=== PATIENT | male | born 1940 | race Caucasian/White ===

== ENCOUNTER 2018-07-10 22:09 | Emergency (ER) | payer OTHER, BC ==
[2018-07-10 22:17] VITALS: BP 120/49; PULSE 81; TEMP 98.3; BMI 21.4
--- NOTE | 2018-07-10 22:34 | PDOC ---
History of Present Illness - General History Source: Patient, Family Exam Limitations: No Limitations - History of Present Illness Initial Comments: 07/10/18 22:46 The patient is a 78 year old male presenting with family, with a significant past medical history of diabetes (on Metformin for 30 years), who presents to the ED complaining of wound on his left lower extremity 2 weeks ago. He reports that he was bending over to rock picker something when he scraped his left leg with a rock. He notes that he used disinfecting powder which helped stop the bleeding. On presentation the wound is dry and not bleeding. He reports minimal to no pain from the wound area. The patient denies chest pain, shortness of breath, headache and dizziness. Denies fever, chills, nausea, vomiting, diarrhea or constipation. Denies dysuria , frequency, urgency and hematuria. Allergies: None Past surgical history: None reported Social History: No alcohol, tobacco or drug use reported <Dallas Craft - Last Filed: 07/10/18 22:59> <Sherrell Mccullough - Last Filed: 07/11/18 02:32> - General Chief Complaint: Wound Stated Complaint: WOUND TO LEFT LOWER LEG X 2 WEEKS Time Seen by Provider: 07/10/18 22:30 Past History <Dallas Craft - Last Filed: 07/10/18 22:59> - Past Medical History COPD: No Diabetes: Yes - Suicide/Smoking/Psychosocial Hx Smoking History: Former smoker Have you smoked in the past 12 months: No If you are a former smoker, when did you quit?: 50 YRS Information on smoking cessation initiated: No Hx Alcohol Use: No Drug/Substance Use Hx: No Substance Use Type: None <Sherrell Mccullough - Last Filed: 07/11/18 02:32> - Past Medical History Allergies/Adverse Reactions: Allergies Allergy/AdvReac Type Severity Reaction Status Date / Time No Known Allergies Allergy Verified 07/10/18 22:11 Home Medications: Ambulatory Orders Metformin HCl [Glucophage] 1,000 mg PO BID 07/10/18 Review of Systems - Review of Systems Able to Perform ROS?: Yes Comments:: 07/10/18 22:46 GENERAL/CONSTITUTIONAL: No fever or chills. No weakness. HEAD, EYES, EARS, NOSE AND THROAT: No change in vision. No ear pain or discharge. No sore throat. GASTROINTESTINAL: No nausea, vomiting, diarrhea or constipation. GENITOURINARY: No dysuria, frequency, or change in urination. CARDIOVASCULAR: No chest pain or shortness of breath. RESPIRATORY: No cough, wheezing, or hemoptysis. MUSCULOSKELETAL: No joint or muscle swelling or pain. No neck or back pain. SKIN: (+) Diabetic Wound Left lower extremity. NEUROLOGIC: No headache, vertigo, loss of consciousness, or change in strength/ sensation. ENDOCRINE: No increased thirst. No abnormal weight change. HEMATOLOGIC/LYMPHATIC: No anemia, easy bleeding, or history of blood clots. ALLERGIC/IMMUNOLOGIC: No hives or skin allergy. <Dallas Craft - Last Filed: 07/10/18 22:59> *Physical Exam - Vital Signs Last Vital Signs Temp Pulse Resp BP Pulse Ox 98.3 F 81 16 120/49 L 100 07/10/18 22:13 07/10/18 22:13 07/10/18 22:13 07/10/18 22:13 07/10/18 22:13 - Physical Exam Comments: 07/10/18 22:46 Constitutional: Awake, alert, oriented. No acute distress. Head: Normocephalic. Atraumatic Eyes: PERRL. EOMI. Conjunctivae are not pale. ENT: Mucous membranes are moist and intact. Posterior pharynx without exudates or erythema. Uvula midline. Neck: Supple. Full ROM. No lymphadenopathy. Cardiovascular: Regular rate. Regular rhythm. S1, S2 regular. Distal pulses are 2+ and symmetric. Pulmonary/Chest: No evidence of respiratory distress. Clear to auscultation bilaterally No wheezing, rales or rhonchi. Abdominal: Soft and non-distended. There is no tenderness. No rebound, guarding or rigidity. No organomegaly. No palpable masses. Good bowel sounds. Back: No CVA tenderness. Musculoskeletal: No edema. No cyanosis. No clubbing. Full range of motion in all extremities. Nocalf tenderness. Radial/pedal pulses are intact and 2+ bilaterally Skin: (+) 5 cm linear wound scaly surface on left lower extremity, midline lower anterior tibial surface. 1 cm faintly erythematous border. No edema, tenderness, fluctuance or discharge from the wound. Neurological: Alert and oriented to person, place, and time. Cranial nerves II -XII are grossly intact. Normal speech. Strength is grossly symmetric. No sensory deficits. Psychiatric: Good eye contact. Normal interaction, affect and behavior. <Dallas Craft - Last Filed: 07/10/18 22:59> - Vital Signs Last Vital Signs Temp Pulse Resp BP Pulse Ox 98.3 F 81 16 120/49 L 100 07/10/18 22:13 07/10/18 22:13 07/10/18 22:13 07/10/18 22:13 07/10/18 22:13 <Sherrell Mccullough - Last Filed: 07/11/18 02:32> Moderate Sedation - Procedure Monitoring Vital Signs: Procedure Monitoring Vital Signs Temperature 98.3 F 07/10/18 22:13 Pulse Rate 81 07/10/18 22:13 Respiratory Rate 16 07/10/18 22:13 Blood Pressure 120/49 L 07/10/18 22:13 O2 Sat by Pulse Oximetry (%) 100 07/10/18 22:13 <Dallas Craft - Last Filed: 07/10/18 22:59> - Procedure Monitoring Vital Signs: Procedure Monitoring Vital Signs Temperature 98.3 F 07/10/18 22:13 Pulse Rate 81 07/10/18 22:13 Respiratory Rate 16 07/10/18 22:13 Blood Pressure 120/49 L 07/10/18 22:13 O2 Sat by Pulse Oximetry (%) 100 07/10/18 22:13 <Sherrell Mccullough - Last Filed: 07/11/18 02:32> Medical Decision Making - Medical Decision Making Documentation has been prepared under my direction and personally reviewed by me in its entirety. I attest that this documented accurately reflects all work, treatment, procedures and medical decision making performed by me. This 78-year-old man with a history of DM is accompanied by his son-in-law for evaluation of wound of his left lower leg. Approximately 3 weeks ago, patient scraped the anterior tibial surface of his left lower leg against a rock when he was picking something up outside. Patient states that he cleansed the area and placed a disinfectant powder that he bought in a drugstore on the surface of the wound. States that initial erythema decreased significantly after the powder was applied to the wound. He states that improvement has been steady since then. There has been no significant swelling or drainage of purulent material. Exam as noted with scaling along the surface of the wound. There is a very faint erythematous border around the wound proper but no edema/fluctuance/ tenderness noted . There is no purulent drainage noted. Wound appears to be healing slowly without evidence of significant infection at this time. Patient has an front desk officer but no other general physician for follow-up. It was noted to the patient that wound care clinics are experts in helping colonic wounds heal; [facility] has a wound clinic and referral information will be provided for the patient for follow-up there. Patient seemed resistant to follow-up with wound care clinic although his son was encouraging him strongly to do this. He should return to the ER if there is significant swelling/increasing pain or drainage from the wound <Sherrell Mccullough - Last Filed: 07/11/18 02:32> *DC/Admit/Observation/Transfer - Attestations Scribe Attestion: 07/10/18 22:45 Documentation prepared by Dallas Craft, acting as medical reimbursement specialist for Sherrell Mccullough MD <Dallas Craft - Last Filed: 07/10/18 22:59> <Sherrell Mccullough - Last Filed: 07/11/18 02:32> Diagnosis at time of Disposition: Chronic wound of extremity - Discharge Dispostion Disposition: HOME Condition at time of disposition: Stable - Referrals Referrals: Jakob Samano MD [Staff Physician] - - Patient Instructions Printed Discharge Instructions: Debridement of a Wound, Infection, or Burn Additional Instructions: Follow-up at wound care clinic at [facility]() within the next 10 days Return to ER immediately or see your doctor if area becomes swollen/red/painful or you develop discharge from the wound
== END 2018-07-10 23:02 | disposition home or self-care (01) ==
LOC: FER 22:09
DX: L08.9 Local infection of the skin and subcutaneous tissue, unspecified (principal); Z87.891 Personal history of nicotine dependence; E11.9 Type 2 diabetes mellitus without complications; Z79.84 Long term (current) use of oral hypoglycemic drugs
CPT/HCPCS: 99281-25

== ENCOUNTER 2019-05-18 17:30 | Inpatient (IN) | payer OTHER, BC ==
--- NOTE | 2019-05-18 18:01 | PDOC ---
History of Present Illness - General Chief Complaint: Abscess Boil Stated Complaint: ABSCESS Time Seen by Provider: 05/18/19 17:41 - History of Present Illness Initial Comments: 05/18/19 18:44 79yo male presents with his daughter for evaluation of multiple skin abscesses. Pt with hx of htn and dm - last a1c was 9 down from 12 on trulicity with multiple skin abscessess and fluid collections. The first is on the patients R posterior scalp. Pt states it has been present for about a week. States it will intermittently drain purulent fluid. Pt also c/o L scrotal abscess x 6m that he will push on and express thick white fluid from and then it will refill. No pain to the scrotal sack. Pt also c/o a L buttock abscess in the fold just proximal to the rectal region. 7x4cm abscess without drainage but with surroudning erythema. Pt denies f/c. NO abd pain. No rectal bleeding. No n/v/d. No cp/sob. No other complaints. Past History - Past Medical History Allergies/Adverse Reactions: Allergies Allergy/AdvReac Type Severity Reaction Status Date / Time No Known Allergies Allergy Verified 05/18/19 17:34 Home Medications: Ambulatory Orders Metformin HCl [Glucophage] 1,000 mg PO BID 07/10/18 Cholecalciferol (Vitamin D3) [Vitamin D3 -] 1,000 unit PO DAILY 05/18/19 Cyanocobalamin [Vitamin B12 -] 2,000 mcg PO DAILY 05/18/19 Dulaglutide [Trulicity] 0.5 mg SQ WEEKLY 05/18/19 Lisinopril [Zestril] 2.5 mg PO DAILY 05/18/19 Sitagliptin Phosphate [Januvia] 50 mg PO DAILY 05/18/19 Tamsulosin HCl [Flomax] 0.4 mg PO HS 05/18/19 COPD: No Diabetes: Yes HTN: Yes - Psycho Social/Smoking Cessation Hx Smoking History: Former smoker Have you smoked in the past 12 months: No If you are a former smoker, when did you quit?: 50 YRS Information on smoking cessation initiated: No Hx Alcohol Use: No Drug/Substance Use Hx: No Substance Use Type: None Review of Systems - Review of Systems Able to Perform ROS?: Yes Is the patient limited Syrian proficient: No Constitutional: No: Chills, Fever HEENTM: No: Eye Pain, Nose Pain, Throat Pain Respiratory: No: Cough, Shortness of Breath Cardiac (ROS): No: Chest Pain ABD/GI: Yes: Other (R buttock pain). No: Diarrhea, Nausea, Vomiting, Abdominal cramping : Yes: Testicular Mass (L scrotal abscesss vs cyst without surrounding erythema or drainage) Musculoskeletal: No: Back Pain Integumentary: Yes: Lesions, Other (multiple abscesses present) Neurological: No: Headache All Other Systems: Reviewed and Negative *Physical Exam - Vital Signs Last Vital Signs Temp Pulse Resp BP Pulse Ox 97.5 F L 90 18 125/62 98 05/18/19 17:30 05/18/19 17:30 05/18/19 17:30 05/18/19 17:30 05/18/19 17:30 - Physical Exam General Appearance: Yes: Nourished, Appropriately Dressed. No: Apparent Distress HEENT: positive: EOMI, BRAY[place], Normal Voice Neck: positive: Supple Respiratory/Chest: positive: Lungs Clear, Normal Breath Sounds. negative: Respiratory Distress Cardiovascular: positive: Regular Rhythm, Regular Rate, S1, S2 Gastrointestinal/Abdominal: positive: Normal Bowel Sounds, Flat, Soft, Other (L buttock with 7x4cm indurated region with fluctuance just proximal to the rectum , rectal exam without defect felt, no masses, light brown stool, no hemorroids) . negative: Guarding, Rebound, Tenderness Male Genitalia: positive: other (L scrotal region with anterior cyst with white fluid - mobile cyst, no ttp, no drainage, no surrounding erythema) Rectal Exam: positive: normal rectal tone, other (unable to palpate a defect in the rectum, but feel induration at the 6p location) Musculoskeletal: positive: Normal Inspection Extremity: positive: Normal Capillary Refill, Normal Inspection. negative: Swelling Integumentary: positive: Other (abscess with induration and purulent drainage- actively draining to the R posterior scalp just behind the ear, no surrounding erythema, other abscess perirectal and cyst L scrotal region) ED Treatment Course - LABORATORY CBC & Chemistry Diagram: 05/18/19 18:30 05/18/19 18:30 Medical Decision Making - Medical Decision Making 05/18/19 19:00 a/p: 79yo male with L scrotal poss sebateous cyst, L buttock/perirectal region, and R posterior scalp abscess -pt is diabetic and poorly controlled -will send labs, cultures -wound culture taken from purulent drainage from the R posterior scalp region -will start broad spectrum abx -will send for scrotal ultrasound and ct abd/pelvis -pt will need urologic and surgical eval for multiple abscesses/cysts present 05/18/19 19:02 pt has been signed out the oncoming ED physician pending labs, imaging Discharge - Discharge Information Problems reviewed: Yes Clinical Impression/Diagnosis: Scalp abscess, Left buttock abscess, Scrotal sebaceous cyst Condition: Guarded - Follow up/Referral Referrals: Antelmo Prater MD [Primary Care Provider] - - Patient Discharge Instructions - Post Discharge Activity
[2019-05-18] MEDS ORDERED: PIPERACILLIN/TAZOB 3.375 GM 3.375 GM in DEXTROSE 5%-WATER - 50 ML IVPB ONE (18:43)
[2019-05-18] MEDS ORDERED: VANCOMYCIN 1 GM in D5W (PRE-DOCKED) 1,000 MG/250 ML IVPB ONE (18:43)
[2019-05-18] MEDS ORDERED: VANCOMYCIN 1,000 MG VIAL (RESTRICTED TO ID ONLY) ONE (18:50)
[2019-05-18] MEDS ORDERED: PIPERACILLIN/TAZOBACTAM 3.375 GM VIAL IVPB ONE (18:50)
[2019-05-18 18:52] LABS: BASO % 0.1 % (0-2.0); EOS % 2.2 % (0-4.5); HEMATOCRIT 30.8 % (35.4-49); HEMOGLOBIN 10.6 GM/dl (11.7-16.9); LYMPH % 10.3 % (8-40); MCH 30.9 pg (25.7-33.7); MCHC 34.3 g/dl (32.0-35.9); MEAN CELL VOLUME 90.1 fl (80-96); MEAN PLT VOLUME 8.3 fl (7.5-11.1); MONO % 4.9 % (3.8-10.2); NEUT % 82.5 % (42.8-82.8); PLATELET COUNT 286 K/MM3 (134-434); RBC 3.42 M/mm3 (4.00-5.60); WHITE BLOOD COUNT 12.9 K/mm3 (4.0-10.8)
[2019-05-18 18:54] LABS: INR 1.09 (0.82-1.09); PROTHROMBIN TIME (PATIENT) 12.2 SEC (10.2-13.0)
[2019-05-18 18:59] LABS: ALBUMIN 3.5 g/dl (3.4-5.0); BILIRUBIN,TOTAL 0.4 mg/dl (0.2-1); CALCIUM 9.3 mg/dl (8.5-10); CREATININE 1.8 mg/dl (0.55-1.3); TOT PROT 6.6 g/dl (6.4-8.2)
[2019-05-18 19:34] LABS: POTASSIUM 5.1 mmol/L (3.5-5.1)
--- NOTE | 2019-05-18 20:45 | PDOC ---
*Physical Exam - Vital Signs Last Vital Signs Temp Pulse Resp BP Pulse Ox 97.5 F L 90 18 125/62 98 05/18/19 17:30 05/18/19 17:30 05/18/19 17:30 05/18/19 17:30 05/18/19 17:30 ED Treatment Course - LABORATORY CBC & Chemistry Diagram: 05/18/19 18:30 05/18/19 18:30 - ADDITIONAL ORDERS Additional order review: Laboratory Results 05/18/19 05/18/19 05/18/19 18:30 18:30 18:30 PT with INR 12.2 INR 1.09 PTT (Actin FS) 35.4 Sodium 136 Potassium 5.1 Chloride 102 Carbon Dioxide 26 Anion Gap 8 BUN 36.0 H Creatinine 1.8 H Est GFR (CKD-EPI)AfAm 40.02 Est GFR (CKD-EPI)NonAf 34.53 Random Glucose 327 H Calcium 9.3 Total Bilirubin 0.4 AST 13 L ALT 12 L Alkaline Phosphatase 62 Total Protein 6.6 Albumin 3.5 05/18/19 18:30 RBC 3.42 L MCV 90.1 MCHC 34.3 RDW 12.0 MPV 8.3 Neutrophils % 82.5 Lymphocytes % 10.3 Monocytes % 4.9 Eosinophils % 2.2 Basophils % 0.1 - RADIOLOGY Radiology Studies Ordered: Category Date Time Status ABDOMEN & PELVIS CT W/O CONTR [CT] Stat CT Scan 05/18/19 20:10 Taken - Medications Given in the ED: ED Medications Discontinued Medications Generic Name Dose Route Start Last Admin Trade Name Freq PRN Reason Stop Dose Admin Piperacillin Sod/Tazobactam 50 mls @ 100 mls/hr 05/18/19 18:43 05/18/19 19:00 Sod 3.375 gm/ Dextrose IVPB 05/18/19 19:12 100 mls/hr ONCE ONE Administration Protocol Vancomycin HCl 1,000 mg 05/18/19 18:43 05/18/19 19:59 Vancomycin (Pre-Docked) IVPB 05/18/19 18:44 1,000 mg ONCE ONE Administration Protocol Medical Decision Making - Medical Decision Making 05/18/19 21:18 Glucose is 327. Anion gap is 6. No sign of acidosis. Multiple abscesses. However, they appear to be superficial. No deep involvement of the buttock abscess or abscess of the scrotum. Admitted to hospitalist service for better control of diabetes and surgical consultation, general surgery and urology, for treatment of abscesses. Patient remains clinically and hemodynamically stable, fully alert, cheerful, and cooperative, in no pain or other acute distress. Discharge - Discharge Information Problems reviewed: Yes Clinical Impression/Diagnosis: Scalp abscess, Left buttock abscess, Scrotal sebaceous cyst Condition: Guarded - Admission Yes - Follow up/Referral Referrals: Antelmo Prater MD [Primary Care Provider] - - Patient Discharge Instructions - Post Discharge Activity
[2019-05-18 22:27] VITALS: BMI 19.1
--- NOTE | 2019-05-18 23:21 | HP ---
Admitting History and Physical - Primary Care Physician PCP: Dr. Schultz - Admission Chief Complaint: Abscess History of Present Illness: 79yo male with PMH of HTN, DM presents with his daughter for evaluation of multiple skin abscesses. Multiple skin abscess noted with fluid collections. First noted with right posterior scalp, for about a week with intermittently draining purulent fluid. Second with L scrotal abscess x 6m no pain to the scrotal sack. Third to left buttock abscess rectal region 7x4cm abscess surrounding erythema noted. No rectal bleeding. No n/v/d. No cp/sob. History Source: Patient, Family Member, Medical Record Limitations to Obtaining History: No Limitations - Past Medical History Cardiovascular: Yes: HTN Renal/: Yes: BPH Endocrine: Yes: Diabetes Mellitus - Past Surgical History Past Surgical History: Yes: None - Advance Directives Advance Directives: Yes: Health Care Proxy - Smoking History Smoking history: Former smoker Have you smoked in the past 12 months: No If you are a former smoker, when did you quit?: 50 YRS - Alcohol/Substance Use Hx Alcohol Use: No - Social History History of Recent Travel: No Home Medications - Allergies Allergies/Adverse Reactions: Allergies Allergy/AdvReac Type Severity Reaction Status Date / Time No Known Allergies Allergy Verified 05/18/19 17:34 - Home Medications Home Medications: Ambulatory Orders Metformin HCl [Glucophage] 1,000 mg PO BID 07/10/18 Cholecalciferol (Vitamin D3) [Vitamin D3 -] 1,000 unit PO DAILY 05/18/19 Cyanocobalamin [Vitamin B12 -] 2,000 mcg PO DAILY 05/18/19 Dulaglutide [Trulicity] 0.5 mg SQ WEEKLY 05/18/19 Lisinopril [Zestril] 2.5 mg PO DAILY 05/18/19 Sitagliptin Phosphate [Januvia] 50 mg PO DAILY 05/18/19 Tamsulosin HCl [Flomax] 0.4 mg PO HS 05/18/19 Family Medical History Family History: Denies Review of Systems - Review of Systems Constitutional: reports: No Symptoms Eyes: reports: No Symptoms HENT: reports: No Symptoms, Ocular Prosthesis Cardiovascular: reports: No Symptoms Respiratory: reports: No Symptoms Gastrointestinal: reports: No Symptoms Genitourinary: reports: No Symptoms Musculoskeletal: reports: No Symptoms Integumentary: reports: Other (multiple abscess) Neurological: reports: No Symptoms Endocrine: reports: No Symptoms Hematology/Lymphatic: reports: No Symptoms Psychiatric: reports: No Symptoms Physical Examination Vital Signs: Vital Signs Temperature 98.6 F 05/18/19 22:37 Pulse Rate 83 05/18/19 22:37 Respiratory Rate 16 05/18/19 22:37 Blood Pressure 139/58 L 05/18/19 22:37 O2 Sat by Pulse Oximetry (%) 97 05/18/19 22:37 Constitutional: Yes: No Distress, Calm Eyes: Yes: Conjunctiva Clear, EOM Intact HENT: Yes: Atraumatic, Normocephalic Neck: Yes: Supple, Trachea Midline Cardiovascular: Yes: Regular Rate and Rhythm Respiratory: Yes: Regular, CTA Bilaterally Gastrointestinal: Yes: Normal Bowel Sounds, Soft, Other (L buttock with 7x4cm indurated region with fluctuance just proximal to the rectum) Renal/: Yes: Other ( L scrotal region with anterior cyst with white fluid - mobile cyst) Musculoskeletal: Yes: WNL Extremities: Yes: WNL Integumentary: Yes: Other (R posterior scalp abscess) Labs: CBC, BMP 05/18/19 18:30 05/18/19 18:30 Imaging - Results Cat Scan: Report Reviewed (Ct Abd/pelvis: collection at gluteal cleft 2.7 x 2.5 axially and 2.8 cm in craniocaludal dimension compatibile with an abscess, ? infected pilobnidal cyst) Ultrasound: Report Reviewed (left scrotal subcutaneous mass in left hemiscrotum measuring 1.2 x 0.7 x1.7 composed of fluid, soft tissue density) Problem List - Problems (1) Scrotal sebaceous cyst Code(s): L72.3 - SEBACEOUS CYST (2) Scalp abscess Code(s): L02.811 - CUTANEOUS ABSCESS OF HEAD [ANY PART, EXCEPT FACE] (3) Left buttock abscess Code(s): L02.31 - CUTANEOUS ABSCESS OF BUTTOCK (4) SHANTI (acute kidney injury) Code(s): N17.9 - ACUTE KIDNEY FAILURE, UNSPECIFIED (5) Diabetes Code(s): E11.9 - TYPE 2 DIABETES MELLITUS WITHOUT COMPLICATIONS (6) BPH (benign prostatic hyperplasia) Code(s): N40.0 - BENIGN PROSTATIC HYPERPLASIA WITHOUT LOWER URINRY TRACT SYMP (7) HTN (hypertension) Code(s): I10 - ESSENTIAL (PRIMARY) HYPERTENSION Assessment/Plan 79yo male with PMH of HTN, DM and BPH arrived to ED for multiple abscess First noted with right posterior scalp, for about a week with intermittently draining purulent fluid. Second with L scrotal abscess x 6m no pain to the scrotal sack. Third to left buttock abscess rectal region 7x4cm abscess surrounding erythema noted. # Multiple abscess left scrotal US: subcutaneous mass in left hemiscrotum measuring 1.2 x 0.7 x1.7 composed of fluid, soft tissue density Ct Abd/pelvis: collection at gluteal cleft 2.7 x 2.5 axially and 2.8 cm in craniocaludal dimension compatibile with an abscess, ? infected pilobnidal cyst wbc: 12.9 In ED: given vanco and zosyn x1 -follow up blood, wound culture -Tylenol q 4 hour for pain -continue with zosyn 3.375mg q8 hours -follow up cbc, cmp in AM -follow up ID -follow up surgical eval #SHANTI bun/cr: 36/1.8 - start IVF NS 75 ml/hr - monitor renal function #DM - follow up hgA1c - monitor FSBS TID AC, coverage with novlog sliding scale - Sitagliptin Phosphate 50 mg PO DAILY # HTN - Lisinopril 2.5 mg PO DAILY #BPH - Tamsulosin HCl 0.4 mg PO HS Diet: CASA/NCS DVT PPX: SCD/ Heparin SQ Visit type - Emergency Visit Emergency Visit: Yes ED Registration Date: 05/18/19 Care time: The patient presented to the Emergency Department on the above date and was hospitalized for further evaluation of their emergent condition. - New Patient This patient is new to me today: Yes Date on this admission: 05/19/19 - Critical Care Critical Care patient: No
[2019-05-18] MEDS ORDERED: ACETAMINOPHEN 325 MG TABLET (FP) PO PRN (23:54)
[2019-05-19] MEDS: SODIUM CHLORIDE 1,000 ML IV SCH
[2019-05-19] MEDS ORDERED: PIPERACILLIN/TAZOB 3.375 GM 3.375 GM in DEXTROSE 5%-WATER - 50 ML IVPB SCH (02:00)
[2019-05-19] MEDS: PIPERACILLIN/TAZOB 3.375 GM 3.375 GM in DEXTROSE 5%-WATER - 50 ML IVPB SCH ×3 (02:59→17:08)
[2019-05-19] MEDS: INSULIN (NOVOLOG) ASPART 100 UNITS/ML 10ML VIAL SQ SCH ×3 (06:29→16:23)
--- NOTE | 2019-05-19 08:26 | PN ---
Physical Exam: SUBJECTIVE: Patient seen and examined, reports feeling better,pain controlled. Denies NIEVES, dizziness, cp, sob, palpitations, abdominal pain,N/V/D or urinary symptoms. OBJECTIVE: Vital Signs Period Temp Pulse Resp BP Sys/Lane Pulse Ox Last 24 Hr 97.5 F-98.6 F 77-90 16-18 108-139/52-62 96-98 GENERAL: The patient is awake, alert, and fully oriented, in no acute distress. HEAD: Normal with no signs of trauma-R posterior scalp abscess- draining EYES: PERRL, extraocular movements intact, sclera anicteric, conjunctiva clear. No ptosis. ENT: Ears normal, nares patent, oropharynx clear without exudates, moist mucous membranes. NECK: Trachea midline, full range of motion, supple. LUNGS: Breath sounds equal, clear to auscultation bilaterally, no wheezes, no crackles, no accessory muscle use. HEART: Regular rate and rhythm, S1, S2 without murmur, rub or gallop. ABDOMEN: Soft, nontender, nondistended, normoactive bowel sounds, no guarding, no rebound, no hepatosplenomegaly, no masses. EXTREMITIES: 2+ pulses, warm, well-perfused, no edema. NEUROLOGICAL: Cranial nerves II through XII grossly intact. Normal speech, gait not observed. PSYCH: Normal mood, normal affect. SKIN: Warm, dry, normal turgor, Left buttock abscess, Scrotal cyst Laboratory Results - last 24 hr 05/18/19 05/18/19 05/18/19 18:30 18:30 18:30 WBC 12.9 H RBC 3.42 L Hgb 10.6 L Hct 30.8 L MCV 90.1 MCH 30.9 MCHC 34.3 RDW 12.0 Plt Count 286 MPV 8.3 Absolute Neuts (auto) 10.7 Neutrophils % 82.5 Lymphocytes % 10.3 Monocytes % 4.9 Eosinophils % 2.2 Basophils % 0.1 PT with INR INR PTT (Actin FS) 35.4 Sodium 136 Potassium 5.1 Chloride 102 Carbon Dioxide 26 Anion Gap 8 BUN 36.0 H Creatinine 1.8 H Est GFR (CKD-EPI)AfAm 40.02 Est GFR (CKD-EPI)NonAf 34.53 POC Glucometer Random Glucose 327 H Calcium 9.3 Total Bilirubin 0.4 AST 13 L ALT 12 L Alkaline Phosphatase 62 Total Protein 6.6 Albumin 3.5 05/18/19 05/19/19 18:30 05:28 WBC RBC Hgb Hct MCV MCH MCHC RDW Plt Count MPV Absolute Neuts (auto) Neutrophils % Lymphocytes % Monocytes % Eosinophils % Basophils % PT with INR 12.2 INR 1.09 PTT (Actin FS) Sodium Potassium Chloride Carbon Dioxide Anion Gap BUN Creatinine Est GFR (CKD-EPI)AfAm Est GFR (CKD-EPI)NonAf POC Glucometer 149 Random Glucose Calcium Total Bilirubin AST ALT Alkaline Phosphatase Total Protein Albumin Active Medications Generic Name Dose Route Start Last Admin Trade Name Freq PRN Reason Stop Dose Admin Acetaminophen 650 mg 05/18/19 23:54 Tylenol - PO Q4H PRN PAIN LEVEL 1-5 Heparin Sodium (Porcine) 5,000 unit 05/19/19 10:00 Heparin - SQ BID ADRIÁN Sodium Chloride 1,000 mls @ 75 mls/hr 05/18/19 23:45 05/19/19 00:00 Normal Saline - IV 75 mls/hr ASDIR ADRIÁN Administration Piperacillin Sod/Tazobactam 50 mls @ 100 mls/hr 05/19/19 02:00 Sod 3.375 gm/ Dextrose IVPB Q8H-IV ADRIÁN Protocol Piperacillin Sod/Tazobactam 50 mls @ 100 mls/hr 05/19/19 02:00 05/19/19 02:59 Sod 3.375 gm/ Dextrose IVPB 05/19/19 18:29 100 mls/hr Q8H-IV ADRIÁN Administration Insulin Aspart 1 units 05/19/19 07:00 05/19/19 06:29 Novolog Vial SQ Not Given TIDAC [facility] Protocol Lisinopril 2.5 mg 05/19/19 10:00 Prinivil PO DAILY ADRIÁN Sitagliptin Phosphate 50 mg 05/19/19 10:00 Januvia - PO DAILY ADRIÁN Tamsulosin HCl 0.4 mg 05/19/19 22:00 Flomax - PO HS ADRIÁN Cat Scan: Report Reviewed (Ct Abd/pelvis: collection at gluteal cleft 2.7 x 2.5 axially and 2.8 cm in craniocaludal dimension compatible with an abscess, ? infected pilobnidal cyst) Ultrasound: Report Reviewed (left scrotal subcutaneous mass in left hemiscrotum measuring 1.2 x 0.7 x1.7 composed of fluid, soft tissue density) ASSESSMENT/PLAN: 79yo male with PMH of HTN, DM and BPH arrived to ED for multiple abscess PMD Antelmo Castellon # Multiple abscess - Imaging consistent with abscess/cyst -wbc: 12.9 >13 - afebrile -s/p vanco and zosyn x1 - will cont on Zosyn and Vanco -will f/u on culture reports -follow up ID - sx Dr. Braxton following,rec ID tomorrow - NPO after MN - woll hold AM Heparin dose #SHANTI -unknown baseline -bun/cr: 36/1.8 >29/1.5 -on IVF NS 75 ml/hr - monitor renal function #DM - HgA1c 9.4 - monitor FSBS TID AC, coverage with novlog sliding scale - will cont on Januvia, hold off Metformin - consistent carb diet # HTN - BP on the low side -will hold off Lisinopril in view of SHANTI - will monitor BP closely #BPH - Tamsulosin HCl 0.4 mg PO HS Diet: Diabetic/ CASA/NCS DVT PPX: SCD/ Heparin SQ Visit type - Emergency Visit Emergency Visit: Yes ED Registration Date: 05/18/19 Care time: The patient presented to the Emergency Department on the above date and was hospitalized for further evaluation of their emergent condition. - New Patient This patient is new to me today: Yes Date on this admission: 05/19/19 - Critical Care Critical Care patient: No
[2019-05-19 08:33] LABS: HEMATOCRIT 30.2 % (35.4-49); HEMOGLOBIN 10.4 GM/dl (11.7-16.9); MCH 30.5 pg (25.7-33.7); MCHC 34.3 g/dl (32.0-35.9); MEAN CELL VOLUME 88.9 fl (80-96); MEAN PLT VOLUME 8.1 fl (7.5-11.1); PLATELET COUNT 286 K/MM3 (134-434); RDW 11.9 % (11.9-15.9)
[2019-05-19 08:45] LABS: ALBUMIN 3.3 g/dl (3.4-5.0); BILIRUBIN,TOTAL 0.5 mg/dl (0.2-1); CALCIUM 9.1 mg/dl (8.5-10); CREATININE 1.5 mg/dl (0.55-1.3); POTASSIUM 4.6 mmol/L (3.5-5.1); TOT PROT 6.2 g/dl (6.4-8.2)
[2019-05-19] MEDS ORDERED: DEXTROSE 5%-WATER - 50 ML IVPB ONE ×2 (09:13→16:15)
[2019-05-19] MEDS ORDERED: PIPERACILLIN/TAZOBACTAM 3.375 GM VIAL IVPB ONE ×2 (09:13→16:15)
[2019-05-19] MEDS ORDERED: PATIENT'S OWN MEDICATION (NON-FORMULARY) (Lisinopril [Zestril] 2.5 MG) PO SCH (10:00)
[2019-05-19] MEDS ORDERED: LISINOPRIL 5 MG TABLET (FP) PO SCH (10:00)
[2019-05-19] MEDS ORDERED: sitaGLIPtin PHOSPHATE 50 MG TABLET PO SCH (10:00)
--- NOTE | 2019-05-19 10:12 | CON.ID ---
Consult - History of Present Illness History of Present Illness: 79 y.o. male with uncontrolled DM and HTN presenting with collections with purulent drainage on Lt scalp, Lt gluteal cleft, and Lt testical for the past approx 1 wk as per pt. Lt gluteal cleft abscess Lt scrotal abscess Lt scalp abscess DM HTN BPH -- continue Vancomycin/Zosyn empirically for now -- f/u wound/blood cultures - akjust antibiotics if indicated -- wbc mildly elevated, monitor cbc -- monitor renal function (creatinine decreasing) -- Vancomycin trough prior to 4th dose -- Surgical evaluation -- continue wound care -- needs control of DM Pt very resistant to receiving insulin for coverage Explained to him importance of glycemic control, case d/w daughter over the phone Will follow Thank you - History Source History Provided By: Patient, Family Member Limitations to Obtaining History: No Limitations - Past Medical History Cardio/Vascular: Yes: HTN Renal/: Yes: BPH Endocrine: Yes: Diabetes Mellitus - Past Surgical History Past Surgical History: Yes: None - Alcohol/Substance Use Hx Alcohol Use: No - Smoking History Smoking history: Former smoker Have you smoked in the past 12 months: No If you are a former smoker, when did you quit?: 50 YRS - Social History History of Recent Travel: No Home Medications - Allergies Allergies/Adverse Reactions: Allergies Allergy/AdvReac Type Severity Reaction Status Date / Time No Known Allergies Allergy Verified 05/18/19 17:34 - Home Medications Home Medications: Ambulatory Orders Metformin HCl [Glucophage] 1,000 mg PO BID 07/10/18 Cholecalciferol (Vitamin D3) [Vitamin D3 -] 1,000 unit PO DAILY 05/18/19 Cyanocobalamin [Vitamin B12 -] 2,000 mcg PO DAILY 05/18/19 Dulaglutide [Trulicity] 0.5 mg SQ WEEKLY 05/18/19 Lisinopril [Zestril] 2.5 mg PO DAILY 05/18/19 Sitagliptin Phosphate [Januvia] 50 mg PO DAILY 05/18/19 Tamsulosin HCl [Flomax] 0.4 mg PO HS 05/18/19 Review of Systems - Review of Systems Constitutional: reports: No Symptoms. denies: Chills, Diaphoresis, Fever, Lethargy, Loss of Appetite, Malaise, Night Sweats, Unintentional Wgt. Loss, Weakness, Other Eyes: reports: No Symptoms. denies: Blind Spots, Blurred Vision, Double Vision , Eye Pain, Floaters, Photophobia, Recent Change in Vision, Other HENT: reports: No Symptoms. denies: Difficult Swallowing, Ear Discharge, Ear Pain, Epistaxis, Gingival Bleeding, Hearing Loss, Mouth Swelling, Nasal Congestion, Ocular Prosthesis, Throat Pain, Toothache, Ringing in Ears, Other Neck: reports: No Symptoms. denies: Decreased ROM, Lumps, Pain on Movement, Stiffness, Swollen Glands, Tenderness, Other Cardiovascular: reports: No Symptoms. denies: Chest Pain, Edema, Palpitations, Shortness of Breath, Other Respiratory: reports: No Symptoms. denies: Cough, Exercise Intolerance, Hemoptysis, Orthopnea, PND, Snoring, SOB, SOB on Exertion, Wheezing, Other Gastrointestinal: reports: No Symptoms. denies: Abdominal Pain, Bloating, Constipation, Diarrhea, Dysphagia, Indigestion, Melena, Nausea, Rectal Bleeding , Vomiting, Vomiting Blood, Other Genitourinary: reports: No Symptoms. denies: Burning, Discharge, Dysuria, Flank Pain, Frequency, Hematuria, Incontinence, Lesions, Menses, Pain, Testicular Mass, Testicular Pain, Testicular Swelling, Urgency, Vaginal Bleeding , Other Musculoskeletal: reports: No Symptoms. denies: Back Pain, Crepitus, Decreased ROM, Extremity Pain, Joint Pain, Joint Swelling, Muscle Pain, Muscle Cramps, Muscle Weakness, Other Integumentary: reports: Wound (scalp/Lt gluteus/Lt scrotal with drainage) Neurological: reports: No Symptoms. denies: Change in LOC, Change in Speech, Confusion, Dizziness, Headache, Incoordination, Numbness, Parasthesia, Pre- Existing Deficit, Seizure, Syncope, Tremors, Unsteady Gait, Weakness, Other Endocrine: reports: No Symptoms. denies: Excessive Sweating, Flushing, Increased Hunger, Increased Thirst, Intolerance to Cold, Intolerance to Heat, Unexplained Weight Gain, Unexplained Weight Loss, Other Hematology/Lymphatic: reports: No Symptoms. denies: Easily Bruised, Excessive Bleeding, Swollen Glands, Other Psychiatric: reports: No Symptoms. denies: Altered Sleep Pattern, Anxiety, Depression, Hallucinations, Panic, Paranoia, Suicidal, Other Physical Exam Vital Signs: Vital Signs Temperature 99.3 F 05/19/19 09:40 Pulse Rate 88 05/19/19 09:40 Respiratory Rate 18 05/19/19 09:40 Blood Pressure 128/48 L 05/19/19 09:40 O2 Sat by Pulse Oximetry (%) 96 05/19/19 09:40 Constitutional: Yes: No Distress, Calm Eyes: Yes: Conjunctiva Clear HENT: Yes: Atraumatic Neck: Yes: Supple, Trachea Midline Cardiovascular: Yes: Regular Rate and Rhythm Respiratory: Yes: CTA Bilaterally Gastrointestinal: Yes: Normal Bowel Sounds, Soft Renal/: Yes: WNL Musculoskeletal: Yes: WNL Extremities: Yes: WNL Edema: No Wound/Incision: Yes: Other (Rt scalp superficial collection/minimal erythema/no drainage , Lt gluteal mild induration/erythema collection with purulent drainage, Lt scrotal collection with purulent drainage/ no tenerness/minimal induration) Labs: CBC, BMP 05/19/19 08:15 05/19/19 08:15 Laboratory Tests 05/18/19 05/18/19 05/18/19 18:30 18:30 18:30 WBC 12.9 H RBC 3.42 L Hgb 10.6 L Hct 30.8 L MCV 90.1 MCH 30.9 MCHC 34.3 RDW 12.0 Plt Count 286 MPV 8.3 Absolute Neuts (auto) 10.7 Neutrophils % 82.5 Lymphocytes % 10.3 Monocytes % 4.9 Eosinophils % 2.2 Basophils % 0.1 PT with INR INR PTT (Actin FS) 35.4 Sodium 136 Potassium 5.1 Chloride 102 Carbon Dioxide 26 Anion Gap 8 BUN 36.0 H Creatinine 1.8 H Est GFR (CKD-EPI)AfAm 40.02 Est GFR (CKD-EPI)NonAf 34.53 POC Glucometer Random Glucose 327 H Hemoglobin A1c % Calcium 9.3 Total Bilirubin 0.4 AST 13 L ALT 12 L Alkaline Phosphatase 62 Total Protein 6.6 Albumin 3.5 05/18/19 05/19/19 05/19/19 18:30 05:28 08:15 WBC 13.0 H RBC 3.40 L Hgb 10.4 L Hct 30.2 L MCV 88.9 MCH 30.5 MCHC 34.3 RDW 11.9 Plt Count 286 MPV 8.1 Absolute Neuts (auto) Neutrophils % Lymphocytes % Monocytes % Eosinophils % Basophils % PT with INR 12.2 INR 1.09 PTT (Actin FS) Sodium Potassium Chloride Carbon Dioxide Anion Gap BUN Creatinine Est GFR (CKD-EPI)AfAm Est GFR (CKD-EPI)NonAf POC Glucometer 149 Random Glucose Hemoglobin A1c % Calcium Total Bilirubin AST ALT Alkaline Phosphatase Total Protein Albumin 05/19/19 05/19/19 08:15 08:15 WBC RBC Hgb Hct MCV MCH MCHC RDW Plt Count MPV Absolute Neuts (auto) Neutrophils % Lymphocytes % Monocytes % Eosinophils % Basophils % PT with INR INR PTT (Actin FS) Sodium 137 Potassium 4.6 Chloride 103 Carbon Dioxide 24 Anion Gap 10 BUN 29.0 H Creatinine 1.5 H Est GFR (CKD-EPI)AfAm 49.89 Est GFR (CKD-EPI)NonAf 43.04 POC Glucometer Random Glucose 149 H Hemoglobin A1c % 9.4 H Calcium 9.1 Total Bilirubin 0.5 AST 10 L ALT 11 L Alkaline Phosphatase 57 Total Protein 6.2 L Albumin 3.3 L Imaging - Results Cat Scan: Pending Ultrasound: Pending Problem List - Problems (1) SHANTI (acute kidney injury) Code(s): N17.9 - ACUTE KIDNEY FAILURE, UNSPECIFIED (2) BPH (benign prostatic hyperplasia) Code(s): N40.0 - BENIGN PROSTATIC HYPERPLASIA WITHOUT LOWER URINRY TRACT SYMP (3) Diabetes Code(s): E11.9 - TYPE 2 DIABETES MELLITUS WITHOUT COMPLICATIONS (4) HTN (hypertension) Code(s): I10 - ESSENTIAL (PRIMARY) HYPERTENSION (5) Left buttock abscess Code(s): L02.31 - CUTANEOUS ABSCESS OF BUTTOCK (6) Scalp abscess Code(s): L02.811 - CUTANEOUS ABSCESS OF HEAD [ANY PART, EXCEPT FACE]
[2019-05-19] MEDS: sitaGLIPtin PHOSPHATE 50 MG TABLET PO SCH (10:15)
[2019-05-19] MEDS: HEPARIN NA (PORCINE) 5,000 UNITS/ML 1ML VIAL SQ SCH ×3 (10:23→21:47)
--- NOTE | 2019-05-19 10:30 | CONSULT ---
- Consultation REQUESTING PROVIDER: Aarti Gupta SUBASSEMBLER CONSULT REQUEST: We have been asked to surgically evaluate this patient for an ABSSSI of the skin of the buttock/scalp/scrotum PCP:Sindy Campbell HISTORY OF PRESENT ILLNESS: JEREL who is a 79 y/o male who presented to the [facility] ED w/acute on chronic ABSSSI's of the above areas. PMHx: NIDDM/HLD/BPH PSHx: ? Home Medications Medication Instructions Recorded Metformin HCl [Glucophage] 1,000 mg PO BID 07/10/18 Cholecalciferol (Vitamin D3) 1,000 unit PO DAILY 05/18/19 [Vitamin D3 -] Cyanocobalamin [Vitamin B12 -] 2,000 mcg PO DAILY 05/18/19 Dulaglutide [Trulicity] 0.5 mg SQ WEEKLY 05/18/19 Lisinopril [Zestril] 2.5 mg PO DAILY 05/18/19 Sitagliptin Phosphate [Januvia] 50 mg PO DAILY 05/18/19 Tamsulosin HCl [Flomax] 0.4 mg PO HS 05/18/19 Allergies Allergy/AdvReac Type Severity Reaction Status Date / Time No Known Allergies Allergy Verified 05/18/19 17:34 PHYSICAL EXAM: GENERAL: Awake, alert, and fully oriented, in no acute distress. HEAD: Normal with no signs of trauma. EYES: sclera anicteric, conjunctiva clear. NECK: Normal ROM, supple without lymphadenopathy, JVD, or masses. LUNGS: Clear to auscultation bilat anteriorly. No wheezes, and no crackles. No accessory muscle use. HEART: Regular rate and rhythm. No murmurs ABDOMEN: Soft, nontender, not distended, normoactive bowel sounds, no guarding, no rebound, no masses. No organomegaly. MUSCULOSKELETAL: Normal ROM at all joints. No bony deformities or tenderness. No CVA tenderness. UPPER EXTREMITIES: 2+ pulses, warm, well-perfused. No cyanosis. Cap refill <2 seconds. No peripheral edema. LOWER EXTREMITIES: 2+ pulses, warm, well-perfused. No calf tenderness. No peripheral edema. NEUROLOGICAL: Normal speech, gait not observed. PSYCH: Cooperative. Good eye contact. Appropriate mood and affect. SKIN: ABSSSI of the scalp(draining); left buttock cleft(partially draining) and scrotum(partially draining; the scalp and scrotal areas are probably infected sebaceous cysts. Vital Signs Temperature 99.3 F 05/19/19 09:40 Pulse Rate 88 05/19/19 09:40 Respiratory Rate 18 05/19/19 09:40 Blood Pressure 128/48 L 05/19/19 09:40 O2 Sat by Pulse Oximetry (%) 96 05/19/19 09:40 Lab Results WBC 13.0 K/mm3 (4.0-10.8) H 05/19/19 08:15 RBC 3.40 M/mm3 (4.00-5.60) L 05/19/19 08:15 Hgb 10.4 GM/dl (11.7-16.9) L 05/19/19 08:15 Hct 30.2 % (35.4-49) L 05/19/19 08:15 MCV 88.9 fl (80-96) 05/19/19 08:15 MCHC 34.3 g/dl (32.0-35.9) 05/19/19 08:15 RDW 11.9 % (11.9-15.9) 05/19/19 08:15 Plt Count 286 K/MM3 (134-434) 05/19/19 08:15 Sodium 137 mmol/L (136-145) 05/19/19 08:15 Potassium 4.6 mmol/L (3.5-5.1) 05/19/19 08:15 Chloride 103 mmol/L (98-107) 05/19/19 08:15 Carbon Dioxide 24 mmol/L (21-32) 05/19/19 08:15 Anion Gap 10 MMOL/L (8-16) 05/19/19 08:15 BUN 29.0 mg/dl (7-18) H 05/19/19 08:15 Creatinine 1.5 mg/dl (0.55-1.3) H 05/19/19 08:15 Random Glucose 149 mg/dl (74-106) H 05/19/19 08:15 Calcium 9.1 mg/dl (8.5-10) 05/19/19 08:15 INR 1.09 (0.82-1.09) 05/18/19 18:30 IMP: ABSSSI's of the scalp and scrotum and buttock. PLAN: I and D buttock ABSSSI; scrotal infection to be addressed by Urology who was consulted and the scalp lesion appears to be adequately draining and will only need LWC; d/w the patient and his daughter. Misael Braxton MD FACS
[2019-05-19] MEDS: VANCOMYCIN 1 GRAM (PRE-DOCKED) 1,000 MG/250 ML BAG IVPB SCH (20:48)
[2019-05-19] MEDS: TAMSULOSIN HCL 0.4 MG CAP PO SCH (21:47)
[2019-05-20] MEDS ORDERED: PIPERACILLIN/TAZOBACTAM 3.375 GM VIAL IVPB ONE (01:19)
[2019-05-20] MEDS ORDERED: DEXTROSE 5%-WATER - 50 ML IVPB ONE (01:20)
[2019-05-20] MEDS: PIPERACILLIN/TAZOB 3.375 GM 3.375 GM in DEXTROSE 5%-WATER - 50 ML IVPB SCH ×2 (02:19→09:09)
[2019-05-20] MEDS: sitaGLIPtin PHOSPHATE 50 MG TABLET PO SCH ×2 (06:20→10:07)
[2019-05-20] MEDS: INSULIN (NOVOLOG) ASPART 100 UNITS/ML 10ML VIAL SQ SCH ×3 (06:23→16:29)
[2019-05-20] MEDS ORDERED: LIDOCAINE HCL 1%, 10 MG/ML (50 mL VIAL) SQ ONE (07:53)
[2019-05-20 08:38] LABS: BASO % 0.2 % (0-2.0); EOS % 6.3 % (0-4.5); HEMATOCRIT 30.9 % (35.4-49); HEMOGLOBIN 10.4 GM/dl (11.7-16.9); LYMPH % 15.6 % (8-40); MCH 30.6 pg (25.7-33.7); MCHC 33.8 g/dl (32.0-35.9); MEAN CELL VOLUME 90.5 fl (80-96); MEAN PLT VOLUME 7.7 fl (7.5-11.1); MONO % 6.1 % (3.8-10.2); NEUT % 71.8 % (42.8-82.8); PLATELET COUNT 334 K/MM3 (134-434); RBC 3.41 M/mm3 (4.00-5.60); RDW 11.8 % (11.9-15.9); WHITE BLOOD COUNT 9.9 K/mm3 (4.0-10.8)
[2019-05-20] MEDS: HEPARIN NA (PORCINE) 5,000 UNITS/ML 1ML VIAL SQ SCH ×3 (09:24→21:35)
[2019-05-20 09:30] LABS: CALCIUM 8.9 mg/dl (8.5-10); CREATININE 1.6 mg/dl (0.55-1.3); POTASSIUM 4.4 mmol/L (3.5-5.1)
--- NOTE | 2019-05-20 10:24 | PN ---
Physical Exam: SUBJECTIVE: Patient seen and examined at bedside. OBJECTIVE: Vital Signs Period Temp Pulse Resp BP Sys/Lane Pulse Ox Last 24 Hr 97.6 F-98.7 F 70-85 16-18 95-119/38-58 97-99 GENERAL: The patient is awake, alert, and fully oriented, in no acute distress. LUNGS: Breath sounds equal, clear to auscultation bilaterally, no wheezes, no crackles, no accessory muscle use. HEART: Regular rate and rhythm, S1, S2 EXTREMITIES: 2+ pulses, warm, well-perfused, no edema. NEUROLOGICAL: Cranial nerves II through XII grossly intact. Normal speech, gait not observed. SKIN: (1) scalp abscess; (2) rectal abscess I&D today, surgical dressing c/d/i; (3) scrotal abscess not draining Laboratory Results - last 24 hr 05/19/19 05/19/19 05/19/19 11:22 16:19 22:01 WBC RBC Hgb Hct MCV MCH MCHC RDW Plt Count MPV Absolute Neuts (auto) Neutrophils % Lymphocytes % Monocytes % Eosinophils % Basophils % Sodium Potassium Chloride Carbon Dioxide Anion Gap BUN Creatinine Est GFR (CKD-EPI)AfAm Est GFR (CKD-EPI)NonAf POC Glucometer 239 248 66 Random Glucose Calcium Urine Color Urine Appearance Urine pH Urine Protein Urine Glucose (UA) Urine Ketones Urine Blood Urine Nitrite Urine Bilirubin Urine Urobilinogen Ur Leukocyte Esterase 05/20/19 05/20/19 05/20/19 03:07 06:16 07:06 WBC 9.9 RBC 3.41 L Hgb 10.4 L Hct 30.9 L MCV 90.5 MCH 30.6 MCHC 33.8 RDW 11.8 L Plt Count 334 MPV 7.7 Absolute Neuts (auto) 7.2 Neutrophils % 71.8 Lymphocytes % 15.6 D Monocytes % 6.1 Eosinophils % 6.3 H D Basophils % 0.2 Sodium Potassium Chloride Carbon Dioxide Anion Gap BUN Creatinine Est GFR (CKD-EPI)AfAm Est GFR (CKD-EPI)NonAf POC Glucometer 172 130 Random Glucose Calcium Urine Color Urine Appearance Urine pH Urine Protein Urine Glucose (UA) Urine Ketones Urine Blood Urine Nitrite Urine Bilirubin Urine Urobilinogen Ur Leukocyte Esterase 05/20/19 05/20/19 07:06 09:00 WBC RBC Hgb Hct MCV MCH MCHC RDW Plt Count MPV Absolute Neuts (auto) Neutrophils % Lymphocytes % Monocytes % Eosinophils % Basophils % Sodium 137 Potassium 4.4 Chloride 105 Carbon Dioxide 25 Anion Gap 7 L BUN 23.0 H Creatinine 1.6 H Est GFR (CKD-EPI)AfAm 46.14 Est GFR (CKD-EPI)NonAf 39.81 POC Glucometer Random Glucose 142 H Calcium 8.9 Urine Color Yellow Urine Appearance Clear Urine pH 6.5 Urine Protein Trace Urine Glucose (UA) Negative Urine Ketones Negative Urine Blood Negative Urine Nitrite Negative Urine Bilirubin Negative Urine Urobilinogen 0.2 Ur Leukocyte Esterase Negative Active Medications Generic Name Dose Route Start Last Admin Trade Name Freq PRN Reason Stop Dose Admin Acetaminophen 650 mg 05/18/19 23:54 05/19/19 17:22 Tylenol - PO 650 mg Q4H PRN Administration PAIN LEVEL 1-5 Heparin Sodium (Porcine) 5,000 unit 05/19/19 10:00 05/20/19 09:24 Heparin - SQ Not Given BID ADRIÁN Sodium Chloride 1,000 mls @ 75 mls/hr 05/18/19 23:45 05/19/19 00:00 Normal Saline - IV 75 mls/hr ASDIR ADRIÁN Administration Vancomycin HCl 1,000 mg in 250 mls @ 200 mls/hr 05/19/19 20:00 05/19/19 20:48 Vancomycin (Pre-Docked) IVPB 200 mls/hr Q24H ADRIÁN Administration Protocol Piperacillin Sod/Tazobactam 50 mls @ 100 mls/hr 05/19/19 18:00 05/20/19 09:09 Sod 3.375 gm/ Dextrose IVPB 100 mls/hr Q8H-IV ADRIÁN Administration Protocol Insulin Aspart 1 units 05/19/19 07:00 05/20/19 06:23 Novolog Vial SQ Not Given TIDAC [facility] Protocol Sitagliptin Phosphate 50 mg 05/20/19 09:30 05/20/19 10:07 Januvia - PO 50 mg DAILY@0700 ADRIÁN Administration Tamsulosin HCl 0.4 mg 05/19/19 22:00 05/19/19 21:47 Flomax - PO 0.4 mg HS ADRIÁN Administration Microbiology 05/18/19 18:50 Abscess Gram Stain - Final 05/18/19 18:50 Abscess Wound Culture - Preliminary Presumptive Mrsa (Pbp2a Pos) 05/18/19 18:30 Blood - Peripheral Venous Blood Culture - Preliminary NO GROWTH OBTAINED AFTER 24 HOURS, INCUBATION TO CONTINUE FOR 4 DAYS. 05/18/19 18:30 Blood - Peripheral Venous Blood Culture - Preliminary NO GROWTH OBTAINED AFTER 24 HOURS, INCUBATION TO CONTINUE FOR 4 DAYS. ASSESSMENT/PLAN: 79 year-old male with a PMH significant for HTN and poorly-controlled Type II NIDDM, admitted for abscesses of the scalp, scrotum and buttock. Buttock abscess --05/18 CTAP: 2.8 x 27 x 2.5 cm abscess of superior gluteal cleft --s/p I&D today --culture (+) presumptive MRSA --continue Vanc, stop Zosyn --ID following Scrotal abscess --05/18 US scrotum: abscess left hemiscrotum 1.7 x 1.2 x 0.7cm --urology consult placed on 05/19 Scalp abscess --cleanse with NS, dry sterile dressings daily Type II NIDDM --continue PO meds --Novolog sliding scale coverage Hypertension --continue lisinopril FEN Fluids: PO intake adequate Electrolytes: replete as indicated Nutrition: diabetic diet DVT prophylaxis: subq heparin Dispo: continues to require inpatient care. Full code. Visit type - Emergency Visit Emergency Visit: Yes ED Registration Date: 05/18/19 Care time: The patient presented to the Emergency Department on the above date and was hospitalized for further evaluation of their emergent condition. - New Patient This patient is new to me today: Yes Date on this admission: 05/20/19 - Critical Care Critical Care patient: No
[2019-05-20] MEDS ORDERED: morphine CARPU-JECT 2 MG/1 ML DISP.SYRIN IVPB ONE (11:45)
[2019-05-20] MEDS ORDERED: traMADol HCL 50 MG TABLET PO PRN ×2 (11:58→11:59)
--- NOTE | 2019-05-20 12:06 | PROC ---
Incision and Drainage Risks and Benefits Explained: Yes Consent on Chart: Yes Betadine cleansed: Yes Anesthesia: 1% Lidocaine Blade Size: 10 Irrigated with Normal Saline: Yes (30 cc NS) Iodinated Packin in Plain packing: Yes Sterile Dressing Applied: Yes - Remarks Remarks: Area cleaned with betadine and 10cc lidocaine used to anesthesize the area. The skin was opened with a vertical incision(2cm) sharpley with a 10 blade. The area tracked deep to approximately 3cm/superiorly and inferiorly and was opened up with a clamp. 5 ml purulent drainage was noted. The area was irrigated with NS and packed with 1 inch plain packing. Dry dressing was applied. 2 mg Morphine was also given via IVSS. Dressing orders completed and wound culture taken.
--- NOTE | 2019-05-20 12:11 | PN ---
Progress Note (short form) - Note Progress Note: Pt tolerated the bedside I&D today, see procedure note. Vital Signs Period Temp Pulse Resp BP Sys/Lane Pulse Ox Last 24 Hr 97.6 F-98.7 F 70-85 16-18 95-119/38-58 97-99 GEN: Alert and follows commands Head; posterior right head with 1/2 cm would with fibrinous material. Area is flat and without flutuance. Applied bacitracin Left gluteal region: Indurated/erythematous with skin breakdown and purulent drainage with palpation. I&D completed today (see procedure note) CBC, BMP 05/20/19 07:06 05/20/19 07:06 presumptive MRSA A/P: 79 yo male with diabetes and multiple abscess. s/p Left buttock I&D at bedside Local wound care ordered ID follow up for presumptive MRSA on culture. Repeat culture taken today during I&D. D/w Dr. Braxton, surgery to follow Urology for scrotal abscess
[2019-05-20] MEDS ORDERED: BACITRACIN 15 GM TUBE TOPICAL OINTMENT TP ONE (12:15)
[2019-05-20] MEDS: LISINOPRIL 5 MG TABLET (FP) PO SCH (12:26)
--- NOTE | 2019-05-20 13:47 | PN ---
Progress Note, Physician - Current Medication List Current Medications: Active Medications Acetaminophen (Tylenol -) 650 mg PO Q4H PRN PRN Reason: PAIN LEVEL 1-5 Last Admin: 05/19/19 17:22 Dose: 650 mg Docusate Sodium (Colace -) 100 mg PO BID [facility] Heparin Sodium (Porcine) (Heparin -) 5,000 unit SQ TID [facility] Vancomycin HCl (Vancomycin (Pre-Docked)) 1,000 mg in 250 mls @ 200 mls/hr IVPB Q24H [facility]; Protocol Last Admin: 05/19/19 20:48 Dose: 200 mls/hr Insulin Aspart (Novolog Vial) 1 units SQ TIDAC [facility]; Protocol Last Admin: 05/20/19 12:26 Dose: 2 unit Lisinopril (Prinivil) 2.5 mg PO DAILY [facility] Last Admin: 05/20/19 12:26 Dose: 2.5 mg Sitagliptin Phosphate (Januvia -) 50 mg PO DAILY@0700 [facility] Last Admin: 05/20/19 10:07 Dose: 50 mg Tamsulosin HCl (Flomax -) 0.4 mg PO HS [facility] Last Admin: 05/19/19 21:47 Dose: 0.4 mg Tramadol HCl (Ultram -) 50 mg PO Q6H PRN PRN Reason: PAIN LEVEL 6-10 - Objective Vital Signs: Vital Signs Temperature 97.9 F 05/20/19 10:00 Pulse Rate 83 05/20/19 10:00 Respiratory Rate 18 05/20/19 10:00 Blood Pressure 133/72 05/20/19 10:00 O2 Sat by Pulse Oximetry (%) 99 05/20/19 08:06 Labs: CBC, BMP 05/20/19 07:06 05/20/19 07:06 INR, PTT INR 1.09 (0.82-1.09) 05/18/19 18:30
--- NOTE | 2019-05-20 18:32 | CON.GU ---
Consult Consult Specialty:: Referred by:: Medicine Reason for Consultation:: scrotal mass - History of Present Illness Chief Complaint: scrotal mass History of Present Illness: 79 year old male with lump in his scrotum. - History Source History Provided By: Patient Limitations to Obtaining History: No Limitations - Past Medical History Cardio/Vascular: Yes: HTN Renal/: Yes: BPH Endocrine: Yes: Diabetes Mellitus - Past Surgical History Past Surgical History: Yes: None - Alcohol/Substance Use Hx Alcohol Use: No - Smoking History Smoking history: Former smoker Have you smoked in the past 12 months: No If you are a former smoker, when did you quit?: 50 YRS - Social History History of Recent Travel: No Home Medications - Allergies Allergies/Adverse Reactions: Allergies Allergy/AdvReac Type Severity Reaction Status Date / Time No Known Allergies Allergy Verified 05/18/19 17:34 - Home Medications Home Medications: Ambulatory Orders Metformin HCl [Glucophage] 1,000 mg PO BID 07/10/18 Cholecalciferol (Vitamin D3) [Vitamin D3 -] 1,000 unit PO DAILY 05/18/19 Cyanocobalamin [Vitamin B12 -] 2,000 mcg PO DAILY 05/18/19 Dulaglutide [Trulicity] 0.5 mg SQ WEEKLY 05/18/19 Lisinopril [Zestril] 2.5 mg PO DAILY 05/18/19 Sitagliptin Phosphate [Januvia] 50 mg PO DAILY 05/18/19 Tamsulosin HCl [Flomax] 0.4 mg PO HS 05/18/19 Review of Systems - Review of Systems Genitourinary: reports: Testicular Mass Physical Exam- Vital Signs: Vital Signs Temperature 97.7 F 05/20/19 14:17 Pulse Rate 83 05/20/19 14:17 Respiratory Rate 18 05/20/19 14:17 Blood Pressure 107/56 L 05/20/19 14:17 O2 Sat by Pulse Oximetry (%) 98 05/20/19 14:17 Scrotum: Yes: Other (subq mass on left side of scrotum distinct from the testicle. It is nontender, no erythema, soft. Not fluctuant) Labs: CBC, BMP 05/20/19 07:06 05/20/19 07:06 Imaging - Results Ultrasound: Report Reviewed Problem List - Problems (1) Scrotal sebaceous cyst Assessment/Plan: does not appear to be acutely infected or pus filled. non tender. continue abx. follow up as outpatient Code(s): L72.3 - SEBACEOUS CYST
[2019-05-20] MEDS: VANCOMYCIN 1 GRAM (PRE-DOCKED) 1,000 MG/250 ML BAG IVPB SCH (19:52)
[2019-05-20] MEDS: TAMSULOSIN HCL 0.4 MG CAP PO SCH (21:35)
[2019-05-20] MEDS: DOCUSATE SODIUM 100 MG CAPSULE (FP) PO SCH (21:35)
[2019-05-21] MEDS: HEPARIN NA (PORCINE) 5,000 UNITS/ML 1ML VIAL SQ SCH ×3 (06:33→22:05)
[2019-05-21 07:29] LABS: BASO % 0.3 % (0-2.0); EOS % 7.3 % (0-4.5); HEMOGLOBIN 11.1 GM/dl (11.7-16.9); LYMPH % 18.5 % (8-40); MCH 30.3 pg (25.7-33.7); MCHC 33.6 g/dl (32.0-35.9); MEAN PLT VOLUME 7.4 fl (7.5-11.1); MONO % 8.3 % (3.8-10.2); NEUT % 65.6 % (42.8-82.8); PLATELET COUNT 348 K/MM3 (134-434); RBC 3.67 M/mm3 (4.00-5.60); RDW 11.8 % (11.9-15.9); WHITE BLOOD COUNT 8.4 K/mm3 (4.0-10.8)
[2019-05-21 07:45] LABS: ALBUMIN 3.1 g/dl (3.4-5.0); BILIRUBIN,TOTAL 0.3 mg/dl (0.2-1); CREATININE 1.7 mg/dl (0.55-1.3); MAGNESIUM 1.9 mg/dL (1.8-2.4); POTASSIUM 4.6 mmol/L (3.5-5.1); TOT PROT 6.2 g/dl (6.4-8.2)
[2019-05-21] MEDS: sitaGLIPtin PHOSPHATE 50 MG TABLET PO SCH (08:13)
[2019-05-21] MEDS: INSULIN (NOVOLOG) ASPART 100 UNITS/ML 10ML VIAL SQ SCH ×3 (08:13→16:30)
--- NOTE | 2019-05-21 08:13 | PN ---
Physical Exam: SUBJECTIVE: Patient seen and examined OBJECTIVE: Vital Signs Period Temp Pulse Resp BP Sys/Lane Pulse Ox Last 24 Hr 97.7 F-98.2 F 80-83 17-18 98-133/52-72 97-99 GENERAL: The patient is awake, alert, and fully oriented, in no acute distress. LUNGS: Breath sounds equal, clear to auscultation bilaterally, no wheezes, no crackles, no accessory muscle use. HEART: Regular rate and rhythm, S1, S2 EXTREMITIES: 2+ pulses, warm, well-perfused, no edema. NEUROLOGICAL: Cranial nerves II through XII grossly intact. Normal speech, gait not observed. SKIN: (1) scalp abscess; (2) rectal abscess s/p I&D; (3) scrotal abscess not draining Laboratory Results - last 24 hr 05/20/19 05/20/19 05/20/19 07:06 07:06 09:00 WBC 9.9 RBC 3.41 L Hgb 10.4 L Hct 30.9 L MCV 90.5 MCH 30.6 MCHC 33.8 RDW 11.8 L Plt Count 334 MPV 7.7 Absolute Neuts (auto) 7.2 Neutrophils % 71.8 Lymphocytes % 15.6 D Monocytes % 6.1 Eosinophils % 6.3 H D Basophils % 0.2 Sodium 137 Potassium 4.4 Chloride 105 Carbon Dioxide 25 Anion Gap 7 L BUN 23.0 H Creatinine 1.6 H Est GFR (CKD-EPI)AfAm 46.14 Est GFR (CKD-EPI)NonAf 39.81 POC Glucometer Random Glucose 142 H Calcium 8.9 Magnesium Total Bilirubin AST ALT Alkaline Phosphatase Total Protein Albumin Urine Color Yellow Urine Appearance Clear Urine pH 6.5 Urine Protein Trace Urine Glucose (UA) Negative Urine Ketones Negative Urine Blood Negative Urine Nitrite Negative Urine Bilirubin Negative Urine Urobilinogen 0.2 Ur Leukocyte Esterase Negative 05/20/19 05/20/19 05/20/19 12:03 16:28 21:34 WBC RBC Hgb Hct MCV MCH MCHC RDW Plt Count MPV Absolute Neuts (auto) Neutrophils % Lymphocytes % Monocytes % Eosinophils % Basophils % Sodium Potassium Chloride Carbon Dioxide Anion Gap BUN Creatinine Est GFR (CKD-EPI)AfAm Est GFR (CKD-EPI)NonAf POC Glucometer 230 184 181 Random Glucose Calcium Magnesium Total Bilirubin AST ALT Alkaline Phosphatase Total Protein Albumin Urine Color Urine Appearance Urine pH Urine Protein Urine Glucose (UA) Urine Ketones Urine Blood Urine Nitrite Urine Bilirubin Urine Urobilinogen Ur Leukocyte Esterase 05/21/19 05/21/19 05/21/19 06:25 07:10 07:10 WBC 8.4 RBC 3.67 L Hgb 11.1 L Hct 33.0 L MCV 90.0 MCH 30.3 MCHC 33.6 RDW 11.8 L Plt Count 348 MPV 7.4 L Absolute Neuts (auto) 5.5 Neutrophils % 65.6 Lymphocytes % 18.5 Monocytes % 8.3 Eosinophils % 7.3 H Basophils % 0.3 Sodium 137 Potassium 4.6 Chloride 102 Carbon Dioxide 26 Anion Gap 9 BUN 21.0 H Creatinine 1.7 H Est GFR (CKD-EPI)AfAm 42.88 Est GFR (CKD-EPI)NonAf 37.00 POC Glucometer 167 Random Glucose 183 H Calcium 9.0 Magnesium 1.9 Total Bilirubin 0.3 AST 11 L ALT 10 L Alkaline Phosphatase 47 D Total Protein 6.2 L Albumin 3.1 L Urine Color Urine Appearance Urine pH Urine Protein Urine Glucose (UA) Urine Ketones Urine Blood Urine Nitrite Urine Bilirubin Urine Urobilinogen Ur Leukocyte Esterase Active Medications Generic Name Dose Route Start Last Admin Trade Name Freq PRN Reason Stop Dose Admin Acetaminophen 650 mg 05/18/19 23:54 05/19/19 17:22 Tylenol - PO 650 mg Q4H PRN Administration PAIN LEVEL 1-5 Docusate Sodium 100 mg 05/20/19 22:00 05/20/19 21:35 Colace - PO 100 mg BID ADRIÁN Administration Heparin Sodium (Porcine) 5,000 unit 05/20/19 14:00 05/21/19 06:33 Heparin - SQ 5,000 unit TID ADRIÁN Administration Vancomycin HCl 1,000 mg in 250 mls @ 200 mls/hr 05/19/19 20:00 05/20/19 19:52 Vancomycin (Pre-Docked) IVPB 200 mls/hr Q24H ADRIÁN Administration Protocol Insulin Aspart 1 units 05/19/19 07:00 05/20/19 16:29 Novolog Vial SQ 2 unit TIDAC ADRIÁN Administration Protocol Lisinopril 2.5 mg 05/20/19 11:00 05/20/19 12:26 Prinivil PO 2.5 mg DAILY ADRIÁN Administration Sitagliptin Phosphate 50 mg 05/20/19 09:30 05/20/19 10:07 Januvia - PO 50 mg DAILY@0700 ADRIÁN Administration Tamsulosin HCl 0.4 mg 05/19/19 22:00 05/20/19 21:35 Flomax - PO 0.4 mg HS ADRIÁN Administration Tramadol HCl 50 mg 05/20/19 11:59 Ultram - PO Q6H PRN PAIN LEVEL 6-10 ASSESSMENT/PLAN 79 year-old male with a PMH significant for HTN and poorly-controlled Type II NIDDM, admitted for abscesses of the scalp, scrotum and buttock. Buttock abscess --05/18 CTAP: 2.8 x 27 x 2.5 cm abscess of superior gluteal cleft --s/p I&D 05/20, dressing change by surgery today --culture (+) presumptive MRSA; second culture collected and sent --continue Vanc --ID following Scrotal subcutaneous lesion --05/18 US scrotum: subq lesion of left hemiscrotum 1.7 x 1.2 x 0.7cm, possible organizing abscess --seen and evaluated by urology: continue antibiotics, follow up as outpatient Scalp abscess --cleanse with NS, dry sterile dressings daily Type II NIDDM --continue PO meds --Novolog sliding scale coverage Hypertension --BP low, hold lisinopril --orthostatics FEN Fluids: PO intake adequate Electrolytes: replete as indicated Nutrition: diabetic diet DVT prophylaxis: subq heparin Dispo: continues to require inpatient care. Full code. Visit type - Emergency Visit Emergency Visit: Yes ED Registration Date: 05/18/19 Care time: The patient presented to the Emergency Department on the above date and was hospitalized for further evaluation of their emergent condition. - New Patient This patient is new to me today: No - Critical Care Critical Care patient: No
[2019-05-21] MEDS: SODIUM CHLORIDE 1,000 ML IV SCH (08:17)
[2019-05-21] MEDS ORDERED: PT OWN MED DRAWER 7, Y5N ONE (09:02)
[2019-05-21] MEDS: DOCUSATE SODIUM 100 MG CAPSULE (FP) PO SCH ×2 (09:34→22:05)
[2019-05-21] MEDS: LISINOPRIL 5 MG TABLET (FP) PO SCH (09:34)
--- NOTE | 2019-05-21 09:56 | PN ---
Progress Note (short form) - Note Progress Note: Pt without complaints today. Vital Signs Period Temp Pulse Resp BP Sys/Lane Pulse Ox Last 24 Hr 97.7 F-98.2 F 80-98 17-18 78-133/45-72 97-99 GEN: A&0x3, NAD Head: small area/nonfluctuant. No drainage noted. Small area with fibrinous exudate. Left buttock: packing removed, no purulent drainage. Wound irrigated with NS and repacked with plain iodoform. Area between buttock a little macerated. CBC, BMP 05/21/19 07:10 05/21/19 07:10 Microbiology 05/20/19 12:00 Buttock - Left Gram Stain - Final 05/20/19 09:00 Urine - Urine Clean Catch Urine Culture - Final NO GROWTH OBTAINED 05/18/19 18:50 Abscess Gram Stain - Final 05/18/19 18:50 Abscess Wound Culture - Preliminary Presumptive Mrsa (Pbp2a Pos) A/P: 79 yo male s/p Left buttock I&D Dressing changed today, area a little macerated between the buttock. Will begin Sitz baths tomorrow or if the patient has a BM today and packing needs removal. Continue IV abx and local wound care daily D/w Dr. Braxton
[2019-05-21] MEDS: VANCOMYCIN 1 GRAM (PRE-DOCKED) 1,000 MG/250 ML BAG IVPB SCH (20:01)
[2019-05-21] MEDS: TAMSULOSIN HCL 0.4 MG CAP PO SCH (22:05)
[2019-05-22] MEDS: HEPARIN NA (PORCINE) 5,000 UNITS/ML 1ML VIAL SQ SCH ×2 (06:41→14:07)
[2019-05-22] MEDS: INSULIN (NOVOLOG) ASPART 100 UNITS/ML 10ML VIAL SQ SCH ×2 (06:41→11:51)
[2019-05-22] MEDS: sitaGLIPtin PHOSPHATE 50 MG TABLET PO SCH (06:41)
--- NOTE | 2019-05-22 08:00 | DS ---
Physical Exam: SUBJECTIVE: Patient seen and examined at bedside. Very cheerful. No complaints. Denies pain. OBJECTIVE: Vital Signs Period Temp Pulse Resp BP Sys/Lane Pulse Ox Last 24 Hr 97.8 F-98.1 F 80-98 17-18 78-111/45-65 98-100 PHYSICAL EXAM GENERAL: The patient is awake, alert, and fully oriented, in no acute distress. LUNGS: Breath sounds equal, clear to auscultation bilaterally, no wheezes, no crackles, no accessory muscle use. HEART: Regular rate and rhythm, S1, S2 EXTREMITIES: 2+ pulses, warm, well-perfused, no edema. NEUROLOGICAL: Cranial nerves II through XII grossly intact. Normal speech, gait not observed. SKIN: (1) scalp abscess; (2) rectal abscess I&D today, surgical dressing c/d/i; (3) scrotal abscess not draining LABS CBCD WBC 8.4 K/mm3 (4.0-10.8) 05/21/19 07:10 RBC 3.67 M/mm3 (4.00-5.60) L 05/21/19 07:10 Hgb 11.1 GM/dl (11.7-16.9) L 05/21/19 07:10 Hct 33.0 % (35.4-49) L 05/21/19 07:10 MCV 90.0 fl (80-96) 05/21/19 07:10 MCHC 33.6 g/dl (32.0-35.9) 05/21/19 07:10 RDW 11.8 % (11.9-15.9) L 05/21/19 07:10 Plt Count 348 K/MM3 (134-434) 05/21/19 07:10 MPV 7.4 fl (7.5-11.1) L 05/21/19 07:10 CMP Sodium 137 mmol/L (136-145) 05/21/19 07:10 Potassium 4.6 mmol/L (3.5-5.1) 05/21/19 07:10 Chloride 102 mmol/L (98-107) 05/21/19 07:10 Carbon Dioxide 26 mmol/L (21-32) 05/21/19 07:10 Anion Gap 9 MMOL/L (8-16) 05/21/19 07:10 BUN 21.0 mg/dl (7-18) H 05/21/19 07:10 Creatinine 1.7 mg/dl (0.55-1.3) H 05/21/19 07:10 Calcium 9.0 mg/dl (8.5-10) 05/21/19 07:10 Total Bilirubin 0.3 mg/dl (0.2-1) 05/21/19 07:10 AST 11 U/L (15-37) L 05/21/19 07:10 ALT 10 U/L (13-61) L 05/21/19 07:10 Alkaline Phosphatase 47 U/L (45-117) D 05/21/19 07:10 Total Protein 6.2 g/dl (6.4-8.2) L 05/21/19 07:10 Albumin 3.1 g/dl (3.4-5.0) L 05/21/19 07:10 HOSPITAL COURSE: Date of Admission:05/18/19 Date of Discharge: 05/22/19 Microbiology 05/18/19 18:30 Blood - Peripheral Venous Blood Culture - Final NO GROWTH AFTER 5 DAYS INCUBATION 05/18/19 18:30 Blood - Peripheral Venous Blood Culture - Final NO GROWTH AFTER 5 DAYS INCUBATION 05/20/19 12:00 Buttock - Left Gram Stain - Final 05/20/19 12:00 Buttock - Left Wound Culture - Final Mr S Aureus 05/18/19 18:50 Abscess Gram Stain - Final 05/18/19 18:50 Abscess Wound Culture - Final Mr S Aureus 05/20/19 09:00 Urine - Urine Clean Catch Urine Culture - Final NO GROWTH OBTAINED 79 year-old male with a PMH significant for HTN and poorly-controlled Type II NIDDM, admitted for abscesses of the scalp, scrotum and buttock. Buttock abscess --05/18 CTAP: 2.8 x 27 x 2.5 cm abscess of superior gluteal cleft --s/p I&D 05/20 --cultures (+) MRSA; treated with Vanc while inpatient; discharged on doxycycline x 2 weeks --follow up with surgery Dr. Braxton for wound care Scrotal subcutaneous lesion --05/18 US scrotum: subq lesion of left hemiscrotum 1.7 x 1.2 x 0.7cm, possible organizing abscess --seen and evaluated by urology: continued antibiotics as above, follow up as outpatient Scalp abscess --cleansed with NS, dry sterile dressings daily --antibiotics as above Type II NIDDM --continued PO meds with Novolog sliding scale coverage Hypertension --BP low, llisinopril was held while inpatient Minutes to complete discharge: 35 Discharge Summary Problems reviewed: Yes Reason For Visit: OF LEFT BUTTOCK,UNCONTROLLED DIABETES MELLITUS Current Active Problems SHANTI (acute kidney injury) (Acute) BPH (benign prostatic hyperplasia) (Acute) Diabetes (Acute) HTN (hypertension) (Acute) Left buttock abscess (Acute) Scalp abscess (Acute) Scrotal sebaceous cyst (Acute) Condition: Improved - Instructions Diet, Activity, Other Instructions: A prescription has been sent to your pharmacy for doxycycline which is an antibiotic to treat your skin infections. Take this medication as directed and be sure to finish all the medication. You will need to follow up with Dr. Braxton, surgeon, for your rectal/buttock abscess. You will need to follow up with Dr. Ferro, urologist, for your scrotal abscess. Referrals: Antelmo Prater MD [Primary Care Provider] - Disposition: HOME - Home Medications Comprehensive Discharge Medication List: Ambulatory Orders Metformin HCl [Glucophage] 1,000 mg PO BID 07/10/18 Cholecalciferol (Vitamin D3) [Vitamin D3 -] 1,000 unit PO DAILY 05/18/19 Cyanocobalamin [Vitamin B12 -] 2,000 mcg PO DAILY 05/18/19 Dulaglutide [Trulicity] 0.5 mg SQ WEEKLY 05/18/19 Lisinopril [Zestril] 2.5 mg PO DAILY 05/18/19 Sitagliptin Phosphate [Januvia] 50 mg PO DAILY 05/18/19 Tamsulosin HCl [Flomax] 0.4 mg PO HS 05/18/19 This patient is new to me today: No Emergency Visit: Yes ED Registration Date: 05/18/19 Care time: The patient presented to the Emergency Department on the above date and was hospitalized for further evaluation of their emergent condition. Critical Care patient: No - Discharge Referral Referred to [facility] Med P.C.: No
[2019-05-22] MEDS: DOCUSATE SODIUM 100 MG CAPSULE (FP) PO SCH (10:47)
[2019-05-22] MEDS: LISINOPRIL 5 MG TABLET (FP) PO SCH (10:48)
[2019-05-22 14:14] VITALS: BP 101/56; PULSE 80; TEMP 98.7
--- NOTE | 2019-05-22 15:22 | PN ---
Progress Note, Physician History of Present Illness: patient stable no new issues gu going to see the patient - Current Medication List Current Medications: Active Medications Acetaminophen (Tylenol -) 650 mg PO Q4H PRN PRN Reason: PAIN LEVEL 1-5 Last Admin: 05/19/19 17:22 Dose: 650 mg Docusate Sodium (Colace -) 100 mg PO BID [facility] Last Admin: 05/22/19 10:47 Dose: 100 mg Heparin Sodium (Porcine) (Heparin -) 5,000 unit SQ TID [facility] Last Admin: 05/22/19 14:07 Dose: 5,000 unit Vancomycin HCl (Vancomycin (Pre-Docked)) 1,000 mg in 250 mls @ 200 mls/hr IVPB Q24H [facility]; Protocol Last Admin: 05/21/19 20:01 Dose: 200 mls/hr Insulin Aspart (Novolog Vial) 1 units SQ TIDAC [facility]; Protocol Last Admin: 05/22/19 11:51 Dose: 4 unit Lisinopril (Prinivil) 2.5 mg PO DAILY [facility] Last Admin: 05/22/19 10:48 Dose: Not Given Sitagliptin Phosphate (Januvia -) 50 mg PO DAILY@0700 [facility] Last Admin: 05/22/19 06:41 Dose: 50 mg Tamsulosin HCl (Flomax -) 0.4 mg PO HS [facility] Last Admin: 05/21/19 22:05 Dose: 0.4 mg Tramadol HCl (Ultram -) 50 mg PO Q6H PRN PRN Reason: PAIN LEVEL 6-10 - Objective Vital Signs: Vital Signs Temperature 98.7 F 05/22/19 14:00 Pulse Rate 80 05/22/19 14:00 Respiratory Rate 18 05/22/19 14:00 Blood Pressure 101/56 L 05/22/19 14:00 O2 Sat by Pulse Oximetry (%) 98 05/22/19 14:00 Constitutional: Yes: No Distress, Calm Cardiovascular: Yes: S1, S2 Respiratory: Yes: Regular, CTA Bilaterally Gastrointestinal: Yes: Normal Bowel Sounds, Soft Musculoskeletal: Yes: WNL Extremities: Yes: WNL Neurological: Yes: Alert, Oriented Psychiatric: Yes: Alert, Oriented Labs: CBC, BMP 05/21/19 07:10 05/21/19 07:10 INR, PTT INR 1.09 (0.82-1.09) 05/18/19 18:30 Assessment/Plan Problem List - Problems (1) SHANTI (acute kidney injury) Code(s): N17.9 - ACUTE KIDNEY FAILURE, UNSPECIFIED (2) BPH (benign prostatic hyperplasia) Code(s): N40.0 - BENIGN PROSTATIC HYPERPLASIA WITHOUT LOWER URINRY TRACT SYMP (3) Diabetes Code(s): E11.9 - TYPE 2 DIABETES MELLITUS WITHOUT COMPLICATIONS (4) HTN (hypertension) Code(s): I10 - ESSENTIAL (PRIMARY) HYPERTENSION (5) Left buttock abscess Code(s): L02.31 - CUTANEOUS ABSCESS OF BUTTOCK (6) Scalp abscess Code(s): L02.811 - CUTANEOUS ABSCESS OF HEAD [ANY PART, EXCEPT FACE] plan continue current abx will see the sensitivites then decide final plan wound care
--- NOTE | 2019-05-22 15:26 | PN ---
Progress Note, Physician History of Present Illness: patient stable no new issues doing well gu note noted - Current Medication List Current Medications: Active Medications Acetaminophen (Tylenol -) 650 mg PO Q4H PRN PRN Reason: PAIN LEVEL 1-5 Last Admin: 05/19/19 17:22 Dose: 650 mg Docusate Sodium (Colace -) 100 mg PO BID [facility] Last Admin: 05/22/19 10:47 Dose: 100 mg Heparin Sodium (Porcine) (Heparin -) 5,000 unit SQ TID [facility] Last Admin: 05/22/19 14:07 Dose: 5,000 unit Vancomycin HCl (Vancomycin (Pre-Docked)) 1,000 mg in 250 mls @ 200 mls/hr IVPB Q24H [facility]; Protocol Last Admin: 05/21/19 20:01 Dose: 200 mls/hr Insulin Aspart (Novolog Vial) 1 units SQ TIDAC [facility]; Protocol Last Admin: 05/22/19 11:51 Dose: 4 unit Lisinopril (Prinivil) 2.5 mg PO DAILY [facility] Last Admin: 05/22/19 10:48 Dose: Not Given Sitagliptin Phosphate (Januvia -) 50 mg PO DAILY@0700 [facility] Last Admin: 05/22/19 06:41 Dose: 50 mg Tamsulosin HCl (Flomax -) 0.4 mg PO HS [facility] Last Admin: 05/21/19 22:05 Dose: 0.4 mg Tramadol HCl (Ultram -) 50 mg PO Q6H PRN PRN Reason: PAIN LEVEL 6-10 - Objective Vital Signs: Vital Signs Temperature 98.7 F 05/22/19 14:00 Pulse Rate 80 05/22/19 14:00 Respiratory Rate 18 05/22/19 14:00 Blood Pressure 101/56 L 05/22/19 14:00 O2 Sat by Pulse Oximetry (%) 98 05/22/19 14:00 Constitutional: Yes: No Distress, Calm Cardiovascular: Yes: S1, S2 Respiratory: Yes: Regular, CTA Bilaterally Gastrointestinal: Yes: Normal Bowel Sounds, Soft Musculoskeletal: Yes: WNL Extremities: Yes: Other Wound/Incision: Yes: Dressing Dry and Intact, Other Neurological: Yes: Alert, Oriented Psychiatric: Yes: Alert, Oriented Labs: CBC, BMP 05/21/19 07:10 05/21/19 07:10 INR, PTT INR 1.09 (0.82-1.09) 05/18/19 18:30 Assessment/Plan Problem List - Problems (1) SHANTI (acute kidney injury) Code(s): N17.9 - ACUTE KIDNEY FAILURE, UNSPECIFIED (2) BPH (benign prostatic hyperplasia) Code(s): N40.0 - BENIGN PROSTATIC HYPERPLASIA WITHOUT LOWER URINRY TRACT SYMP (3) Diabetes Code(s): E11.9 - TYPE 2 DIABETES MELLITUS WITHOUT COMPLICATIONS (4) HTN (hypertension) Code(s): I10 - ESSENTIAL (PRIMARY) HYPERTENSION (5) Left buttock abscess Code(s): L02.31 - CUTANEOUS ABSCESS OF BUTTOCK (6) Scalp abscess Code(s): L02.811 - CUTANEOUS ABSCESS OF HEAD [ANY PART, EXCEPT FACE] plan patient can be switched to doxy 100 mg po bid for 2 weeks rest as per the team
== END 2019-05-22 16:20 | disposition home or self-care (01) | DRG 580 ==
LOC: FER 17:30 → FM/S 21:20
PROVIDERS: ADMIT Internal Medicine; ATTEND Nurse Practitioner Acute Care
PROC: 0J990ZZ Drainage of Buttock Subcutaneous Tissue and Fascia, Open Approach (ICD-10-PCS; principal; 2019-05-20)
DX: L02.91 Cutaneous abscess, unspecified (principal); K61.1 Rectal abscess; N17.9 Acute kidney failure, unspecified; I10 Essential (primary) hypertension; L72.3 Sebaceous cyst; L02.31 Cutaneous abscess of buttock; L02.811 Cutaneous abscess of head [any part, except face]; N40.0 Benign prostatic hyperplasia without lower urinary tract symptoms; B95.62 Methicillin resistant Staphylococcus aureus infection as the cause of diseases classified elsewhere; E11.65 Type 2 diabetes mellitus with hyperglycemia
CPT/HCPCS: 36415; 74176-TC; 76870-TC; 80048; 80053; 81003; 82962; 83036; 83735; 85025; 85027; 85610; 85730; 87040; 87070; 87086; 87186; 87205; 97116-GP; 97162-GP; 99283-25; J1644; J7030